=== PATIENT | female | born 1995 | race African-American/Black ===

== ENCOUNTER 2019-04-21 21:16 | Emergency (ER) | payer BC ==
[~2019-04-21] VITALS: Ht 167.6 cm; Wt 63.5 kg
[2019-04-21 21:40] VITALS: BP 114/79
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
[2019-04-21] MEDS ORDERED: IBUPROFEN600 MG ORAL (23:07)
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
[2019-04-21 23:15] VITALS: BP 114/79
--- NOTE | 2019-04-21 23:15 | NUR ---
ER DISCHARGE NOTE: Patient is cleared to be discharged per ERMD, pt is aox4, on room air, with stable vital signs. accompanied by family member. pt was given dc and prescription instructions, pt was able to verbalize understanding, pt id band removed. pt is able to ambulate with steady gait. pt took all belongings.
--- NOTE | 2019-04-22 09:55 | Diagnostic Imaging Report ---
Indications: Injury, trauma, pain Technique: Two views of the right forearm Comparison: None Findings: No acute fractures. No dislocations. The joint spaces are preserved. No radiopaque foreign body Impression: Negative
== END 2019-04-21 23:15 | disposition home or self-care (01) ==
LOC: EMR 22:00
DX: S50.11XA Contusion of right forearm, initial encounter (principal); W20.8XXA Other cause of strike by thrown, projected or falling object, initial encounter; Y92.9 Unspecified place or not applicable
CPT/HCPCS: 99283

== ENCOUNTER 2020-01-03 08:00 | Emergency (ER) | payer BC, OTHER ==
[~2020-01-03] VITALS: Ht 167.6 cm; Wt 68.0 kg
[~2020-01-03 08:00] MED LIST: IBUPROFEN600 MG ORAL
[2020-01-03 08:27] VITALS: BP 128/71
[2020-01-03] MEDS ORDERED: Ketorolac 30mg Inj IV ONE ×2 (08:45→11:30)
--- NOTE | 2020-01-03 08:56 | Emergency Room Report ---
History of Present Illness General Chief Complaint: Headache Source: Patient Present Illness HPI Patient presents with complaints of headache, nausea and overwhelming stress. 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 She has asked for time off to enter into a trial for her eczema and has been denied this. She is having trouble sleeping. She is not eating well. The h eadache has been intermittent but now is fairly constant over the last couple of days. She feels it behind her right eye and throbbing. She also feels nausea. She has had occasional suicidal thoughts with a plan of cutting herself or overdosing but states that she feels to afraid to do so and states she will not harm herself. She does have a family history of depression in her mother. The patient rarely drinks alcohol. She has no access to firearms. She lives with her sister and her boyfriend. The relationships are supportive and good. She is never seen a therapist in the past. She is never been treated for depression in the past. She rates the pain 10/10 at this time. She denies blood thinners, family history of aneurysms, oncologic problems, trauma, fevers or chills or neck stiffness. She has had headaches like this in the past but they have not been this persistent. She mainly feels she needs someone to talk to. The patient starting her period at this time. She does not believe she is pregn ant. She believes that this is making her symptoms slightly worse. No exposure to COVID-19 that she is aware of. The eczema is slightly worsened with the stress that she feels. She feels she is losing some of her hair. She has been using hydrocortisone. This has been helping somewhat. No sore throat, chest pain, palpitations, vomiting, diarrhea, dysuria, abdominal pain, shortness of breath, joint pain, visual changes, dizziness. Allergies: Coded Allergies: No Known Allergies (Unverified , 04/21/19) COVID-19 Screening Contact w/high risk pt: No Experienced COVID-19 symptoms?: No COVID-19 Testing performed SHAG TRUCK DRIVER: No Patient History Past Medical History: see triage record, other - eczema Social History: Reports: alcohol use - rare; Denies: smoking, drug use Social History Narrative brand sales manager at [employer] Last Menstrual Period: on her 2nd day of period Now: No Reviewed Nursing Documentation: PMH: Agreed; PSxH: Agreed Nursing Documentation-PMH Past Medical History: No Stated History Review of Systems All Other Systems: negative except mentioned in HPI Physical Exam Vital Signs Date Time Temp Pulse Resp B/P (MAP) Pulse Ox O2 Delivery O2 Flow Rate FiO2 01/03/20 08:05 99.0 77 18 123/74 (90) 97 Room Air Sp02 EP Interpretation: reviewed, normal General Appearance: well appearing, no apparent distress, GCS 15, non-toxic Head: normocephalic, atraumatic Eyes: bilateral eye normal inspection, bilateral eye PERRL, bilateral eye EOMI ENT: normal pharynx, moist mucus membranes Neck: full range of motion, supple, no meningismus Respiratory: lungs clear, normal breath sounds Cardiovascular #1: regular rate, rhythm Cardiovascular #2: 2+ radial (R) Gastrointestinal: normal inspection, normal bowel sounds, non-distended Musculoskeletal: back normal, normal range of motion, gait/station normal Neurologic: alert, motor strength/tone normal, pollution control engineer III-XII nml as tested, DTRs symmetric, oriented x3, sensory intact, cerebellar normal, speech normal Psychiatric: depressed affect - Occasionally tearful, anxious Suicide Risk Assessment: Suicidal Ideation: Yes Had intent to initiate attempt: No Pt's plan for suicide attempt: Yes Has means to complete attempt: Yes Skin: warm/dry - Eczema involving scalp and dorsum of hands, healed acne scars face, other Medical Decision Making Diagnostic Impression: Primary Impression: Headache Qualified Codes: R51.9 - Headache, unspecified Additional Impressions: Nausea Situational stress Situational depression Eczema Qualified Codes: L30.8 - Other specified dermatitis ER Course Patient presents with headache nausea and depression related to her job. Neurologic exam is normal at this time and no red flag signs. Concerned that she has thought of a plan but does not feel that she wants to act on it at this time is mainly asking for help. In addition she has eczema. Evaluation with labs and urinalysis. Treatment with Zofran and Toradol. Labs unremarkable. Patient still with pain after initial treatment. Toradol repeated with Tylenol. Nausea is improved. Consideration of CT of the head. Will reevaluate. Repeat neurologic exam unchanged. Patient markedly improved with decreased pain. CT of the head not indicated at this time. Also she feels hopeful in terms of follow-up and getting the support that she needs. Assessment of suicide risk is extremely low to nil. Discussed treatment plan with patient. Discussed the importance of abstention from alcohol. Discussed having a low threshold for returning if the depression and suicidal ideation worsens. Discussed the importance of follow-up with her own doctor and also seeking psychiatric/psychological help. No medical emergency at this time. Patient stable for outpatient observation and treatment. Laboratory Tests Test 01/03/20 08:57 White Blood Count 3.6 K/UL (4.8-10.8) L Red Blood Count 4.98 M/UL (4.20-5.40) Hemoglobin 13.5 G/DL (12.0-16.0) Hematocrit 41.6 % (37.0-47.0) Mean Corpuscular Volume 83 FL (80-99) Mean Corpuscular Hemoglobin 27.2 PG (27.0-31.0) Mean Corpuscular Hemoglobin Concent 32.5 G/DL (32.0-36.0) Red Cell Distribution Width 13.3 % (11.6-14.8) Platelet Count 214 K/UL (150-450) Mean Platelet Volume 5.8 FL (6.5-10.1) L Neutrophils (%) (Auto) 60.1 % (45.0-75.0) Lymphocytes (%) (Auto) 28.2 % (20.0-45.0) Monocytes (%) (Auto) 8.0 % (1.0-10.0) Eosinophils (%) (Auto) 2.1 % (0.0-3.0) Basophils (%) (Auto) 1.6 % (0.0-2.0) Erythrocyte Sedimentation Rate 12 MM/HR (0-20) Urine Color Red Urine Appearance Slightly cloudy Urine pH 6.5 (4.5-8.0) Urine Specific [place] 1.010 (1.005-1.035) Urine Protein 2+ (NEGATIVE) H Urine Glucose (UA) Negative (NEGATIVE) Urine Ketones Negative (NEGATIVE) Urine Blood 5+ (NEGATIVE) H Urine Nitrite Negative (NEGATIVE) Urine Bilirubin Negative (NEGATIVE) Urine Urobilinogen Normal MG/DL (0.0-1.0) Urine Leukocyte Esterase 1+ (NEGATIVE) H Urine RBC Tntc /HPF (0 - 2) H Urine WBC 0-2 /HPF (0 - 2) Urine Squamous Epithelial Cells Occasional /LPF Urine Bacteria Few /HPF (NONE) Urine HCG, Qualitative Negative (NEGATIVE) Sodium Level 138 MMOL/L (136-145) Potassium Level 4.2 MMOL/L (3.5-5.1) Chloride Level 104 MMOL/L (98-107) Carbon Dioxide Level 28 MMOL/L (21-32) Anion Gap 6 mmol/L (5-15) Blood Urea Nitrogen 14 mg/dL (7-18) Creatinine 1.1 MG/DL (0.55-1.30) Estimated Glomerular Filtration Rate > 60 mL/min (>60) Glucose Level 93 MG/DL (74-106) Calcium Level 9.0 MG/DL (8.5-10.1) Total Bilirubin 0.2 MG/DL (0.2-1.0) Aspartate Amino Transferase (AST) 18 U/L (15-37) Alanine Aminotransferase (ALT) 18 U/L (12-78) Alkaline Phosphatase 73 U/L (46-116) Total Protein 6.7 G/DL (6.4-8.2) Albumin 3.7 G/DL (3.4-5.0) Globulin 3.0 g/dL Albumin/Globulin Ratio 1.2 (1.0-2.7) Lipase 91 U/L (73-393) Thyroid Stimulating Hormone (TSH) 2.978 uiU/mL (0.358-3.740) Last Vital Signs Date Time Temp Pulse Resp B/P (MAP) Pulse Ox O2 Delivery O2 Flow Rate FiO2 01/03/20 13:50 99.0 74 17 129/76 99 Room Air Status: improved Disposition: HOME, SELF-CARE Condition: Improved Scripts Triamcinolone Acetonide (Triamcinolone Acetonide 0.025% Cream) 80 Gm Cream..g. 1 APPLIC TP BID for eczema, #80 GM Prov: Bowen Carter MD 01/03/20 Acetaminophen (Tylenol) 325 Mg Tablet 650 MG ORAL Q6H PRN for Prn Pain/Headache/Temp > 101, #30 TAB 0 Refills Prov: Bowen Carter MD 01/03/20 Hydroxyzine Pamoate (VISTARIL) 25 Mg Capsule 25 MG PO Q8HR, #10 CAP Consider taking at night to help sleep. May also help with anxiety. Prov: Bowen Carter MD 01/03/20 Ondansetron Odt* (ZOFRAN ODT*) 4 Mg Tab.rapdis 4 MG BC EVERY 8 HOURS for nausea and vomiting, #10 TAB 1 Refill Prov: Bowen Carter MD 01/03/20 Famotidine* (Pepcid 20mg tablet*) 20 Mg Tablet 20 MG ORAL DAILY for Gerd, #20 TAB 0 Refills Prov: Bowen Carter MD 01/03/20 Bowen Carter MD Jan 03, 2020 08:56
[2020-01-03 09:14] LABS: APPEARANCE,URINE SLIGHTLY CLOUDY; BILIRUBIN, URINE NEGATIVE (NEGATIVE); GLUCOSE, URINE (UA) NEGATIVE (NEGATIVE); KETONES,URINE NEGATIVE (NEGATIVE); LEUKOCYTE ESTERASE ,URINE 1+ (NEGATIVE); NITRITE,URINE NEGATIVE (NEGATIVE); PH,URINE 6.5 (4.5-8.0); PROTEIN,URINE 2+ (NEGATIVE); UROBILINOGEN,URINE NORMAL MG/DL (0.0-1.0)
[2020-01-03 09:15] LABS: COLOR,URINE RED
[2020-01-03 09:16] LABS: BASOPHILS % (AUTO) 1.6 % (0.0-2.0); EOSINOPHILS % (AUTO) 2.1 % (0.0-3.0); HEMATOCRIT 41.6 % (37.0-47.0); HEMOGLOBIN 13.5 G/DL (12.0-16.0); LYMPHOCYTES % (AUTO) 28.2 % (20.0-45.0); MEAN CORPUSCULAR VOLUME 83 FL (80-99); NEUTROPHILS % (AUTO) 60.1 % (45.0-75.0); PLATELET COUNT 214 K/UL (150-450); RED BLOOD COUNT 4.98 M/UL (4.20-5.40); RED CELL DISTRIBUTION WIDTH 13.3 % (11.6-14.8); WHITE BLOOD COUNT 3.6 K/UL (4.8-10.8)
[2020-01-03 09:28] LABS: ANION GAP 6 mmol/L (5-15); BLOOD UREA NITROGEN 14 mg/dL (7-18); CARBON DIOXIDE 28 MMOL/L (21-32); CHLORIDE 104 MMOL/L (98-107); CREATININE 1.1 MG/DL (0.55-1.30); POTASSIUM 4.2 MMOL/L (3.5-5.1); SODIUM 138 MMOL/L (136-145)
[2020-01-03 09:41] LABS: ALANINE AMINOTRANSFERASE 18 U/L (12-78); ALBUMIN 3.7 G/DL (3.4-5.0); ALBUMIN/GLOBULIN RATIO 1.2 (1.0-2.7); ALKALINE PHOSPHATASE 73 U/L (46-116); ASPARTATE AMINO TRANSFERASE 18 U/L (15-37); BILIRUBIN,TOTAL 0.2 MG/DL (0.2-1.0)
[2020-01-03 10:41] VITALS: BP 126/73
[2020-01-03] MEDS ORDERED: Acetaminophen 500mg (ES) tab ORAL ONE (11:30)
[2020-01-03] MEDS ORDERED: FAMOTIDINE20 MG ORAL (13:26)
[2020-01-03] MEDS ORDERED: TYLENOL325 MG ORAL (13:26)
[2020-01-03] MEDS ORDERED: ONDANSETRON ODT4 MG BC (13:26)
[2020-01-03] MEDS ORDERED: TRIAMCINOLONE A80 GM TP (13:26)
[2020-01-03] MEDS ORDERED: VISTARIL25 M1 PO (13:26)
[2020-01-03 13:30] VITALS: BP 131/75
[2020-01-03 13:50] VITALS: BP 129/76
== END 2020-01-03 13:52 | disposition home or self-care (01) ==
LOC: EMR 08:40
DX: R51.9 Headache, unspecified (principal); R11.0 Nausea; F43.9 Reaction to severe stress, unspecified; F32.9 Major depressive disorder, single episode, unspecified; L30.8 Other specified dermatitis; R45.851 Suicidal ideations
CPT/HCPCS: 36415; 80053; 81003; 81025; 83690; 84443; 85025; 85651; 96374; 96375; 96376; 99284; J1885; J2405; J7040; S0028